=== PATIENT | female | born 1975 | race Caucasian/White ===

== ENCOUNTER 2016-12-18 13:02 | Emergency (ER) | payer OTHER ==
--- NOTE | 2016-12-18 14:43 | DIAGNOSTIC IMAGING REPORT ---
PROCEDURE: XR CHEST 2 VIEW INDICATION: FEVER TECHNIQUE: PA and lateral views. COMPARISON: Chest 10/18/2014 FINDINGS: Lungs are clear. Heart and mediastinum are normal. Thorax is normal. IMPRESSION: 1. Negative chest.
--- NOTE | 2016-12-18 15:20 | ED ORDER SUMMARY ---
..... Patient: AMERICA NGUYỄN OrderSheet [facility] VisitID: [id number] [place] [address] 41y, F Registration Date/Time: 12/18/2016 ORDER SHEET Weight: 122.4 kg (stated) Allergies: tributaline GENERAL ORDERS: Rapid Influenza Screen (Nasal Pharyngeal) (n) Urgent (13:23 12/18/2016 EKoroleva P.A.-C) (Ack 13:28 LTapper) (14:21 JRomanelli R.N.) Chest 2V Urgent (13:26 12/18/2016 EKoroleva P.A.-C) (Ack 13:28 LTapper) (14:18 LTapper) CBC w Diff Urgent (13:26 12/18/2016 EKoroleva P.A.-C) (Ack 13:28 LTapper) (13:49 JRomanelli R.N.) BMP Urgent (13:26 12/18/2016 EKoroleva P.A.-C) (Ack 13:28 LTapper) (13:49 JRomanelli R.N.) PCT (Procalcitonin) Urgent (13:27 12/18/2016 EKoroleva P.A.-C) (Ack 13:28 LTapper) (16:01 JRomanelli R.N.) Lactate, Serum Urgent (13:27 12/18/2016 EKoroleva P.A.-C) (Ack 13:28 LTapper) (Cancelled: Other14:56 EKoroleva P.A.-C) - (tamiflu 75 mg po) (14:59 12/18/2016 EKoroleva P.A.-C) (Ack 15:22 LTapper) (Cancelled: Other16:02 JRomanelli R.N.) Vitals (15:00 12/18/2016 EKoroleva P.A.-C) (Ack 15:01 LTapper) (16:02 JRomanelli R.N.) MEDICATION ORDERS: Tylenol PO 650 mg (NOW) (13:26 12/18/2016 EKoroleva P.A.-C) (Ack 13:27 Geremias R.N.) (13:49 omanelli R.N.) IV FLUIDS: IV NS : initial bolus 1000 mL (1000 mL/hr), then 1000 mL/hr for X1 (NOW); George (13:26 12/18/2016 EKoroleva P.A.-C) (Ack 13:27 Geremias R.N.) (13:47 omanelli R.N.) Toradol IV 30 mg (NOW) (13:12/18/2016 EKoroleva P.A.-C) (Ack 13:27 Geremias R.N.) (13:48 omanelli R.N.) Zofran IV 8 mg (NOW) (13:33 12/18/2016 EKmayalegraham P.A.-C) (13:57 omanelli R.N.) ORDER SHEET NOTES: [Electronically signed by Miriam Pool-Crys (15:21 12/18/2016)] [Electronically signed by Ortiz Herrera R.N. (17:32 12/18/2016)] [Electronically locked/signed by Ortiz Herrera R.N. (17:32 12/18/2016)]
--- NOTE | 2016-12-18 15:20 | ED CLINICAL REPORT ---
Clinical Report - Physicians/Mid Levels [facility] [address] [place] [address] 12/18/2016 13:05 Patient: AMERICA NGUYỄN Time Seen: 13:32 Dec 18 2016. Arrived- By private vehicle. Historian- patient and family. HISTORY OF PRESENT ILLNESS Chief Complaint: COUGH and "FLU". This started 2 days and is still present. The patient has had a cough, fever, chills and muscle aches. No sputum production, sore throat, hoarseness, sinus drainage or ear pain. Additional history - The patient has had contact with a sick individual. (patient reports symptoms started with a fever about 48 hours previously, have progressive dry cough, body aches, fatigue, arthralgias. Condition she started with a migraine-like headache, to the bony lateral frontal aspect of her head, with nausea. She has a history of migraines, usually once a months.). Similar symptoms previously: None. REVIEW OF SYSTEMS No vomiting, diarrhea or pedal edema. All systems otherwise negative, except as recorded above. SOCIAL HISTORY Smoker- current status unknown. No alcohol use or drug use. ADDITIONAL NOTES The nursing notes have been reviewed. PHYSICAL EXAM Vital Signs: 12/18/2016 13:13 BP: 129/69. HR: 100. RR: 18. O2 saturation: 97%. Temp: 103.1 F. Pain level now: 8/10. Appearance: Alert. (diaphoretic). Eyes: Eyes normal inspection. ENT: Ears normal. Nose normal. Pharynx normal. Neck: Normal inspection. CVS: Normal heart rate and rhythm. Heart sounds normal. Respiratory: No respiratory distress. No accessory muscle use or splinting. Abdomen: Soft. No organomegaly. No rebound tenderness. Skin: Skin warm. Abnormal skin color. Neuro: Oriented X 3. No motor deficit. LABS, X-RAYS, AND EKG Chest X-ray: (IMPRESSION: 1. Negative chest. Electronically Final signed by:Juan Parr MD 12/18/2016 2:43:28 PM). Laboratory Tests: CBC w Diff: (LINO: 12/18/2016 13:30) ( MsgRcvd 12/18/2016 13:58) Final results Test Result Flag Units (Reference) WHITE BLOOD COUNT 9.1 K/uL (4.5-11.5) RED BLOOD COUNT 5.15 M/uL (4.00-5.20) HEMOGLOBIN 12.2 gm/dL (12.0-16.0) HEMATOCRIT 36.7 % (36.0-46.0) MEAN CELL VOLUME 71 L fL (80-100) MEAN CORPUSCULAR HGB 24 L pg (26-34) MEAN CORPUSCULAR HGB CONC 33 g/dL (31-37) RED CELL DISTRIBUTION WIDTH 17.5 H % (11.6-14.8) PLATELET COUNT 364 K/uL (150-400) NEUTROPHIL % 78.3 H % (50-75) LYMPH % 8.5 L % (25-40) MONO % 12.7 % (3-14) EOSINOPHIL % 0.4 % (0-4) BASOPHIL % 0.1 % (0-2) [id number]: (LINO: 12/18/2016 13:30) ( MsgRcvd 12/18/2016 14:45) Final results Test Result Flag Units (Reference) PROCALCITONIN <0.5 ng/mL (0-0.5) PCT Concentration: Interpretation : Risk/option for action PCT <=0.5 ng/mL : Systemic : Low risk forinfection(sepsis): progression to severeis not likely. : systemic infection.Local bacterial : CAUTION-PCT levelsinfection is : below 0.5 ng/mL do notpossible. : exclude an infection,because localizedinfections (withoutsystemic signs) may beassociated with suchlow levels. If PCT ismeasured very earlyafter a bacterialchallenge (usually <6hours), these valuesmay still be low. Inthis case PCT shouldbe re-assessed 6-24hours later. PCT >0.5 and : Systemic infection: Moderate risk for<= 2 ng/mL : (sepsis) is : progression to severepossible, but : systemic infection.other conditions : The patient should beare known to : closely monitoredelevate PCT. : both clinically andby re-assessing PCTwithin 6-24 hours. PCT > 2 ng/mL : Systemic infection: High risk for(sepsis) is likely: progression to severeunless other : systemic infection.causes are known. : PCT >= 10 ng/mL : Important systemic: High likelihood ofinflammatory : severe sepsis orresponse, almost : septic shock.exclusively due to:severe bacterial :sepsis or septic :shock. : BMP: (LINO: 12/18/2016 13:30) ( MsgRcvd 12/18/2016 14:27) Final results Test Result Flag Units (Reference) GLUCOSE 100 mg/dL (70-110) BUN 6 L mg/dL (7-18) CREATININE 0.8 mg/dL (0.6-1.3) Estimated GFR >60 mL/min Estimated GFR- >60 mL/min Note: Persistent reduction over 3 months in eGFR<60 mL/min/1.73 m2 defines CKD. Patients with eGFR values>=60 mL/min/1.73 m2 may also have CKD if evidence ofpersistent proteinuria. Additional information may be foundat www.kidney.org. SODIUM 136 mmol/L (136-145) POTASSIUM 3.5 mmol/L (3.5-5.1) CHLORIDE 102 mmol/L (98-107) CARBON DIOXIDE 20 L mmol/L (21-32) CALCIUM 8.6 mg/dL (8.5-10.1) Rapid Influenza Screen: (LINO: 12/18/2016 14:00) ( MsgRcvd 12/18/2016 14:49) Final results SPECIMEN DESCRIPTION: N Test Result Flag Units (Reference) RAPID INFLUENZA SCREEN CALLED TO: OLAMIDE MARROQUINRN -- DATE: 12/18/16 INFLUENZA A: NEGATIVE SCREEN FOR INFLUENZA A INFLUENZA B: POSITIVE SCREEN FOR INFLUENZA B . PROGRESS AND PROCEDURES Course of Care: Patient was symptom subsiding in the ER, headache is for her home along with her migraine, especially after illness. No meningeal signs. No afebrile. Lungs clear. Chest x-ray unremarkable. No signs or concern of any further acute workup. Nonseptic. No signs of leukocytosis, likely viral pathology, as indicated by a positive rapid influenza B. 12/18/2016 15:11 BP: 124/73. HR: 87. RR: 20. O2 saturation: 95%. Temp: 99.2 F. Pain level now: 5/10. Patient is stable. Physical exam findings are improved. Symptoms better. Patient/family counseled. Disposition: Discharged. CLINICAL IMPRESSION Influenza type B. INSTRUCTIONS Do not work for two days. (alternate tylneol with motrin). Prescription Medications: Zofran (orally disintegrating tablets) 4 mg: take 1 orally every 6 hours for 3 days. Dispense ten (10). Substitution is permissible. Tamiflu 75 mg: take 1 capsule orally every 12 hours for 5 days. Dispense ten (10). No refills. Substitution is permissible. Ibuprofen 600 mg tablets: take 1 tablet orally every 6 hours for 3 days, as needed for fever. Dispense fifteen (15). No refill. OTC Medications: Acetaminophen ER 650 mg (available over the counter): take 1 orally every 6 hours for 3 days, as needed for fever. Dispense ten (10). No refill. Follow-up: Follow up with your doctor Thursday as needed. (Electronically signed by Miriam Pool P.A.-C 12/18/2016 15:21)
--- NOTE | 2016-12-18 15:20 | ED ORDER SUMMARY ---
..... Patient: AMERICA NGUYỄN OrderSheet [facility] VisitID: [id number] [place] [address] 41y, F Registration Date/Time: 12/18/2016 ORDER SHEET Weight: 122.4 kg (stated) Allergies: tributaline GENERAL ORDERS: Rapid Influenza Screen (Nasal Pharyngeal) (n) Urgent (13:23 12/18/2016 EKoroleva P.A.-C) (Ack 13:28 LTapper) (14:21 JRomanelli R.N.) Chest 2V Urgent (13:26 12/18/2016 EKoroleva P.A.-C) (Ack 13:28 LTapper) (14:18 LTapper) CBC w Diff Urgent (13:26 12/18/2016 EKoroleva P.A.-C) (Ack 13:28 LTapper) (13:49 JRomanelli R.N.) BMP Urgent (13:26 12/18/2016 EKoroleva P.A.-C) (Ack 13:28 LTapper) (13:49 JRomanelli R.N.) PCT (Procalcitonin) Urgent (13:27 12/18/2016 EKoroleva P.A.-C) (Ack 13:28 LTapper) (16:01 JRomanelli R.N.) Lactate, Serum Urgent (13:27 12/18/2016 EKoroleva P.A.-C) (Ack 13:28 LTapper) (Cancelled: Other14:56 EKoroleva P.A.-C) - (tamiflu 75 mg po) (14:59 12/18/2016 EKoroleva P.A.-C) (Ack 15:22 LTapper) (Cancelled: Other16:02 JRomanelli R.N.) Vitals (15:00 12/18/2016 EKoroleva P.A.-C) (Ack 15:01 LTapper) (16:02 JRomanelli R.N.) MEDICATION ORDERS: Tylenol PO 650 mg (NOW) (13:26 12/18/2016 EKoroleva P.A.-C) (Ack 13:27 Geremias R.N.) (13:49 omanelli R.N.) IV FLUIDS: IV NS : initial bolus 1000 mL (1000 mL/hr), then 1000 mL/hr for X1 (NOW); George (13:26 12/18/2016 EKoroleva P.A.-C) (Ack 13:27 Geremias R.N.) (13:47 omanelli R.N.) Toradol IV 30 mg (NOW) (13:12/18/2016 EKoroleva P.A.-C) (Ack 13:27 Geremias R.N.) (13:48 omanelli R.N.) Zofran IV 8 mg (NOW) (13:33 12/18/2016 EKmayalegraham P.A.-C) (13:57 omanelli R.N.) ORDER SHEET NOTES: [Electronically signed by Miriam Pool-Crys (15:21 12/18/2016)] [Electronically signed by Ortiz Herrera R.N. (17:32 12/18/2016)] [Electronically locked/signed by Ortiz Herrera R.N. (17:32 12/18/2016)]
--- NOTE | 2016-12-18 15:20 | ED NURSING NOTES ---
Clinical Report - Nurses [facility] [address] [place] [address] 12/18/2016 13:05 Patient: AMERICA NGUYỄN TRIAGE Triage time 13:10 Dec 18 2016. Acuity: LEVEL 3. Chief Complaint: "FLU", FEVER, COUGH and BODY ACHES. Alert. VALORIE COMA SCORE: [place] Coma Scale: 15- eyes open spontaneously (4); best verbal response- oriented x 4 (5); best motor response- obeys commands (6). --13:22 Ortiz Herrera R.N. 13:13 12/18/16. BP: 129/69. HR: 100. RR: 18. O2 saturation: 97%. Temp: 103.1 F. Pain level now: 810. Additional comments: AGARWAL pain. --13:22 Ortiz Herrera R.N. Weight: 122.4 kg stated. Height/Length: 69 inches Per Patient. BMI: 39.9. --13:18 Ortiz Herrera R.N. Medications Zomig Oral. --13:20 Ortiz Herrera R.N. Allergies tributaline. --13:20 Ortiz Herrera R.N. History Historian: patient. ( Flu-like symptoms starting two days ago consisting of a fever, AGARWAL, and nausea.). Onset. (about 2 days ago). She has had a headache and photophobia. Treatment [employer]ER: Took Tylenol and ibuprofen. Symptoms did not improve after treatment. (Nyquil). PAST MEDICAL HX: Immunizations: status is unknown. SOCIAL HX: Heavy tobacco smoker (cigarette)- less than 1 pack per day. No alcohol use or drug use. No recent travel. No infectious disease exposure. ABUSE ASSESSMENT: No report of abuse. FALL RISK ASSESSMENT: Fall risk assessment completed. No fall risk identified. NUTRITIONAL RISK ASSESSMENT: The nutritional risk assessment revealed no deficiencies. FUNCTIONAL ASSESSMENT: Functional assessment: no impairments noted. LEARNING NEEDS ASSESSMENT: The learning needs assessment revealed no barriers. SKIN INTEGRITY ASSESSMENT: Skin integrity risk assessment completed. No skin integrity risk identified. --13:22 Ortiz Herrera R.N. PROBLEMS: Migraine Headache. Hypertension. Concussion. Cholecystitis. Appendicitis. Gastroesophageal Reflux Disease. Dysfunctional Uterine Bleeding. --13:21 Ortiz Herrera R.N. UTI - Urinary Tract Infection [RuleOut]. --13:21 Ortiz Herrera R.N. ADDITIONAL SURGERIES: . Gallbladder Surgery. --13:21 Ortiz Herrera R.N. Interventions ID and allergy band on patient. To treatment room. --13:22 Ortiz Herrera R.N. PHYSICAL ASSESSMENT Ambulatory to room. GENERAL / NEURO / PSYCH: Alert. Oriented X 4. HEENT: Mucous membranes are pink. RESPIRATORY: Respirations not labored. CVS: Cardiac rhythm: (RRR). GI / : Abdomen soft. SKIN: Skin intact. Skin is warm and dry. Normal skin turgor. --13:22 Ortiz Herrera R.N. NURSING PROGRESS NOTES Patient gowned. Reassurance given. Patient identifiers checked. Call light placed in reach. Side rails up x 1. Bed placed in lowest position. Brakes of bed on. Patient ready for evaluation- chart flagged and ED physician notified. --13:23 Ortiz Herrera R.N. 13:30 12/18/2016 Site #1 started via IV in the right forearm with an 20g angiocath, with aseptic technique and good blood return; one attempt. Blood drawn: rainbow set. Labeled in the presence of the patient and sent to the lab. Saline lock flushed with 10 mL saline. --13:47 Ortiz Herrera R.N. 13:32 12/18/2016 Started bag #1 1000 mL IV Fluids IV NS (Saline); at 999 mL/hr over 60 minute(s) via site #1 via IV pump. Allergies verified and confirmed 5 rights. IV patency established. IV site checked: no pain, redness, or swelling. IV flushed thoroughly pre- and post-medication administration. --13:47 Ortiz Herrera R.N. 13:35 12/18/2016 Toradol IVP 30 mg given over 2 minute(s) via site #1. Allergies verified and confirmed 5 rights. IV patency established. IV site checked: no pain, redness, or swelling. IV flushed thoroughly pre- and post-medication administration. IVP given by RN. --13:48 Ortiz Herrera R.N. 15:11 12/18/16. BP: 124/73 (large adult cuff) taken on the left arm, via an automated monitor, while sitting. HR: 87 (irregular). RR: 20 (irregular). O2 saturation: 95% on room air. Temp: 99.2 F. Pain level now: 02/11. --15:13 Valerie Martin <<STRICKEN ENTRY-- 13:35 12/18/2016 IV Fluids IV NS Bag Change: infused. Total amount infused: 1000. STARTED bag #2 (1000 mL) at 999 mL/hr via IV pump. Confirmed 5 rights. IV patency established. IV site checked: no pain, redness, or swelling. IV flushed thoroughly. --16:00 Ortiz Herrera R.N. --END STRIKE>> Correction. --16:01 Ortiz Herrera R.N. 13:40 12/18/2016 Tylenol (Acetaminophen) PO Tablets 650 mg given. Allergies verified and confirmed 5 rights. --13:49 Ortiz Herrera R.N. 13:52 12/18/2016 Zofran (Ondansetron HCl) IVP 8 mg given over 3 minute(s) via site #1. Allergies verified and confirmed 5 rights. IV patency established. IV site checked: no pain, redness, or swelling. IV flushed thoroughly pre- and post-medication administration. IVP given by RN. --13:57 Ortiz Herrera R.N. <<STRICKEN ENTRY-- 14:35 12/18/2016 IV Fluids IV NS Bag Change: infused. Total amount infused: 1000. STARTED bag #2 (1000 mL) at 999 mL/hr via IV pump. Confirmed 5 rights. IV patency established. IV site checked: no pain, redness, or swelling. IV flushed thoroughly. --16:01 Ortiz Herrera R.N. --END STRIKE>> Correction. --16:05 Ortiz Herrera R.N. 14:35 12/18/2016 IV Fluids IV NS Bag Change: bag #1 infused. Total amount infused: 1000. STARTED bag #2 (1000 mL) at 999 mL/hr via IV pump. Confirmed 5 rights. IV patency established. IV site checked: no pain, redness, or swelling. IV flushed thoroughly. --16:05 Ortiz Herrera R.N. 15:35 12/18/2016 IV Fluids IV NS Discontinued: bag #2 infused upon discharge. Total amount infused: 1000 mL. IV patency established. IV site checked: no pain, redness, or swelling. IV flushed thoroughly. --16:06 Ortiz Herrera R.N. 15:40 12/18/2016 Site #1 removed upon discharge. Catheter intact. Manual pressure, pressure dressing and bandaid applied. --16:08 Ortiz Herrera R.N. 14:00. Patient transported to radiology by stretcher with tech. --17:30 Ortiz Herrera R.N. 14:20. Patient ID band checked for patient name, birthdate and medical record number: patient confirmed. Flu swab obtained by RN via nasal pharyngeal swab. Labeled in the presence of the patient and sent to lab. --16:11 Ortiz Herrera R.N. 14:20 late entry -. Patient returned from radiology by stretcher with tech. --17:31 Ortiz Herrera R.N. DISPOSITION / DISCHARGE Departure time: 1545. --15:50 Ortiz Herrera R.N. 15:40 12/18/16. BP: 125/69. HR: 82. RR: 16. O2 saturation: 97% on room air. Temp: 98.6 F (oral). Pain level now: 10/14. Additional comments: AGARWAL pain. --15:52 Ortiz Herrera R.N. 15:45. Condition at departure: improved. No learning barriers present. Discharge instructions provided and reviewed with the patient and the patient left prior to discharge education being provided. Reviewed medication(s) (prescription given to pt's spouse). Reviewed referral to family practice for followup. Patient and spouse verbalized understanding. Written instructions provided in [place]. The patient was discharged by the physician. She was discharged home and accompanied by spouse. She left the Emergency Department ambulatory and via private vehicle. Spouse driving. --15:56 Ortiz Herrera R.N. Locked/Released at 12/18/2016 17:32 by Ortiz Herrera R.N.
--- NOTE | 2016-12-18 17:32 | ED MED RECONCILIATION SUMMARY ---
Patient: AMERICA NGUYỄN Medication Reconciliation Report [facility] VisitID: [id number] [place] [address] 41y, F Registration Date/Time: 12/18/2016 Weight: 122.4 kg Height/Length: 69 in. BMI: 39.9 ALLERGIES: tributaline The patient's Home Medications are listed below: THE FOLLOWING MEDICATIONS NEED TO BE RECONCILED: Zomig Oral The source(s) of the original Home Medication information: Not obtained. The following Medications were given to the patient in the Emergency Department: IV NS IV Fluids bolus 0, then 999 mL/hr, administered: 12/18/2016 1:32:00 PM Toradol [IVP] IVP 30 mg, administered: 12/18/2016 1:35:00 PM Tylenol [PO] PO 650 mg, administered: 12/18/2016 1:40:00 PM Zofran [IVP] IVP 8 mg, administered: 12/18/2016 1:52:00 PM The following Medications were prescribed to the patient: Acetaminophen ER 650 mg (available over the counter): take 1 orally every 6 hours for 3 days, as needed for fever. Dispense ten (10). No refill. -- Miriam Pool, P.A.-C Zofran (orally disintegrating tablets) 4 mg: take 1 orally every 6 hours for 3 days. Dispense ten (10). Substitution is permissible. -- Miriam Pool, P.A.-C Tamiflu 75 mg: take 1 capsule orally every 12 hours for 5 days. Dispense ten (10). No refills. Substitution is permissible. -- Miriam Pool, P.A.-C Ibuprofen 600 mg tablets: take 1 tablet orally every 6 hours for 3 days, as needed for fever. Dispense fifteen (15). No refill. -- Miriam Pool, P.A.-C
--- NOTE | 2016-12-18 17:32 | ED DISCHARGE INSTRUCTIONS ---
Patient: AMERICA NGUYỄN General Instructions [facility] VisitID: [id number] [place] [address] 41y, F Registration Date/Time: 12/18/2016 Influenza type B. INSTRUCTIONS Do not work for two days. (alternate tylneol with motrin). Prescription Medications: Zofran (orally disintegrating tablets) 4 mg: take 1 orally every 6 hours for 3 days. Dispense ten (10). Substitution is permissible. Tamiflu 75 mg: take 1 capsule orally every 12 hours for 5 days. Dispense ten (10). No refills. Substitution is permissible. Ibuprofen 600 mg tablets: take 1 tablet orally every 6 hours for 3 days, as needed for fever. Dispense fifteen (15). No refill. OTC Medications: Acetaminophen ER 650 mg (available over the counter): take 1 orally every 6 hours for 3 days, as needed for fever. Dispense ten (10). No refill. Follow-up: Follow up with your doctor Thursday as needed. ADDITIONAL INFORMATION Influenza (Adult) Influenza, also called the flu, is a viral illness that affects the air passages of the lungs. It differs from the common cold. It is highly contagious. It may be spread through the air by coughing and sneezing or by direct contact (touching the sick person and then touching your own eyes, nose or mouth). Illness starts 1-3 days after exposure and lasts for 1-2 weeks. Antibiotics are usually not needed unless a complication appears (ear or sinus infection or pneumonia). Symptoms may be mild or severe and can include extreme tiredness (wanting to stay in bed all day), chills, fevers, muscle aching, soreness with eye movement, headache, and a dry, hacking cough. Home Care: Avoid exposure to cigarette smoke (yours or others). Tylenol or ibuprofen (Advil) will help fever, muscle aching, and headache. To avoid risk of liver injury, aspirin should not be used in children and teenagers under 18 with this illness. Nausea and loss of appetite are common. A light diet is recommended. Avoid dehydration by drinking 6-8 glasses of fluids per day (water, sport drinks like Gatorade, soft drinks without caffeine, juices, tea, soup, etc.). Extra fluids will also help loosen secretions in the nose and lungs. Jpsx-[id number]-[id number] cold medicines will not shorten the duration of the illness but may be helpful for the following symptoms: cough (Robitussin DM); sore throat (Chloraseptic lozenges or spray); nasal and sinus congestion (Actifed or Sudafed). [NOTE: Do not use decongestants if you have high blood pressure.] Stay home until your fever has been gone for at least 24 hours (without the use of fever-reducing medications such as ibuprofen). Follow Up with your doctor or as directed by our staff if you are not improving over the next week. Note: If you are age 65 or older, or if you have chronic asthma or COPD, we recommend a pneumococcal vaccinationevery five years. All adults shouldreceive a yearly influenza vaccination every . Ask your doctor about this. Get Prompt Medical Attention if any of the following occur: Cough with lots of colored sputum (mucus) or blood in your sputum Chest pain, shortness of breath, wheezing, or difficulty breathing Severe headache, face, neck or ear pain New rash Fever of 100.4F (38C) oral or higher, not better with fever medication Confusion, behavior change or seizure Severe weakness or dizziness Ondansetron Hydrochloride Oral tablet What is this medicine? ONDANSETRON (on ALVARO se jamey) is used to treat nausea and vomiting caused by chemotherapy. It is also used to prevent or treat nausea and vomiting after surgery. How should I use this medicine? Take this medicine by mouth with a glass of water. Follow the directions on your prescription label. Take your doses at regular intervals. Do not take your medicine more often than directed. Talk to your medical office specialist regarding the use of this medicine in children. Special care may be needed. What side effects may I notice from receiving this medicine? Side effects that you should report to your doctor or health healthcare receptionist as soon as possible: allergic reactions like skin rash, itching or hives, swelling of the face, lips or tongue breathing problems dizziness fast or irregular heartbeat feeling faint or lightheaded, falls fever and chills swelling of the hands or feet tightness in the chest Side effects that usually do not require medical attention (report to your doctor or health healthcare receptionist if they continue or are bothersome): constipation or diarrhea headache What may interact with this medicine? Do not take this medicine with any of the following medications: -apomorphine -cisapride -dofetilide -dronedarone -pimozide -thioridazine -ziprasidone This medicine may also interact with the following medications: -carbamazepine -phenytoin -rifampicin -tramadol -other medicines that prolong the QT interval (cause an abnormal heart rhythm) What if I miss a dose? If you miss a dose, take it as soon as you can. If it is almost time for your next dose, take only that dose. Do not take double or extra doses. Where should I keep my medicine? Keep out of the reach of children. Store between 2 and 30 degrees C (36 and 86 degrees F). Throw away any unused medicine after the expiration date. What should I tell my health care provider before I take this medicine? They need to know if you have any of these conditions: heart disease history of irregular heartbeat liver disease low levels of magnesium or potassium in the blood an unusual or allergic reaction to ondansetron, granisetron, other medicines, foods, dyes, or preservatives or trying to get breast-feeding What should I watch for while using this medicine? Check with your doctor or health healthcare receptionist right away if you have any sign of an allergic reaction. Acetaminophen Oral tablet What is this medicine? ACETAMINOPHEN (a set a FARNAZ kristi fen) is a pain reliever. It is used to treat mild pain and fever. How should I use this medicine? Take this medicine by mouth with a glass of water. Follow the directions on the package or prescription label. Take your medicine at regular intervals. Do not take your medicine more often than directed. Talk to your medical office specialist regarding the use of this medicine in children. While this drug may be prescribed for children as young as 6 years of age for selected conditions, precautions do apply. What side effects may I notice from receiving this medicine? Side effects that you should report to your doctor or health healthcare receptionist as soon as possible: allergic reactions like skin rash, itching or hives, swelling of the face, lips, or tongue breathing problems fever or sore throat redness, blistering, peeling or loosening of the skin, including inside the mouth trouble passing urine or change in the amount of urine unusual bleeding or bruising unusually weak or tired yellowing of the eyes or skin Side effects that usually do not require medical attention (report to your doctor or health healthcare receptionist if they continue or are bothersome): headache nausea, stomach upset What may interact with this medicine? alcohol imatinib isoniazid other medicines with acetaminophen What if I miss a dose? If you miss a dose, take it as soon as you can. If it is almost time for your next dose, take only that dose. Do not take double or extra doses. Where should I keep my medicine? Keep out of reach of children. Store at room temperature between 20 and 25 degrees C (68 and 77 degrees F). Protect from moisture and heat. Throw away any unused medicine after the expiration date. What should I tell my health care provider before I take this medicine? They need to know if you have any of these conditions: if you frequently drink alcohol containing drinks liver disease an unusual or allergic reaction to acetaminophen, other medicines, foods, dyes or preservatives or trying to get breast-feeding What should I watch for while using this medicine? Tell your doctor or health healthcare receptionist if the pain lasts more than 10 days (5 days for children), if it gets worse, or if there is a new or different kind of pain. Also, check with your doctor if a fever lasts for more than 3 days. Do not take other medicines that contain acetaminophen with this medicine. Always read labels carefully. If you have questions, ask your doctor or pharmacist. If you take too much acetaminophen get medical help right away. Too much acetaminophen can be very dangerous and cause liver damage. Even if you do not have symptoms, it is important to get help right away. You have been given the following additional information: Influenza (Adult) Ondansetron Hydrochloride Oral tablet Acetaminophen Oral tablet Do not work for two days. (Electronically signed by Miriam Pool P.A.-C 12/18/2016 15:21)
--- NOTE | 2016-12-18 17:32 | ED MAR SUMMARY ---
..... Medication Administration Record [facility] [address] [place] [address] Patient: AMERICA NGUYỄN Visit ID: [id number] 41y, F Weight: 122.4 kg Height/Length: 69 in BMI: 39.9 ALLERGIES: tributaline Start 13:32 12/18/2016 Ortiz Herrera R.N., Stop 15:35 12/18/2016 Ortiz Herrera R.N. Medication Administered: IV NS (SALINE), Dose: IV Fluids over 60 minute(s), Rate: 999 mL/hr, Dispensed: 1000 mL bag, Site: #1 right forearm. Medication Ordered: IV NS : initial bolus 1000 mL (1000 mL/hr), then 1000 mL/hr for X1 (NOW); George. Given 13:35 12/18/2016 Ortiz Herrera R.N. Medication Administered: TORADOL [IVP], Dose: 30 mg IVP over 2 minute(s), Site: #1 right forearm. Medication Ordered: Toradol IV 30 mg (NOW). Given 13:40 12/18/2016 Ortiz Herrera R.N. Medication Administered: TYLENOL [PO] (ACETAMINOPHEN), Dose: 650 mg Tablets PO. Medication Ordered: Tylenol PO 650 mg (NOW). Given 13:52 12/18/2016 Ortiz Herrera R.N. Medication Administered: ZOFRAN [IVP] (ONDANSETRON HCL), Dose: 8 mg IVP over 3 minute(s), Site: #1 right forearm. Medication Ordered: Zofran IV 8 mg (NOW).
--- NOTE | 2016-12-18 17:32 | ED DISCHARGE INSTRUCTIONS ---
Patient: AMERICA NGUYỄN General Instructions [facility] VisitID: [id number] [place] [address] 41y, F Registration Date/Time: 12/18/2016 Influenza type B. INSTRUCTIONS Do not work for two days. (alternate tylneol with motrin). Prescription Medications: Zofran (orally disintegrating tablets) 4 mg: take 1 orally every 6 hours for 3 days. Dispense ten (10). Substitution is permissible. Tamiflu 75 mg: take 1 capsule orally every 12 hours for 5 days. Dispense ten (10). No refills. Substitution is permissible. Ibuprofen 600 mg tablets: take 1 tablet orally every 6 hours for 3 days, as needed for fever. Dispense fifteen (15). No refill. OTC Medications: Acetaminophen ER 650 mg (available over the counter): take 1 orally every 6 hours for 3 days, as needed for fever. Dispense ten (10). No refill. Follow-up: Follow up with your doctor Thursday as needed. ADDITIONAL INFORMATION Influenza (Adult) Influenza, also called the flu, is a viral illness that affects the air passages of the lungs. It differs from the common cold. It is highly contagious. It may be spread through the air by coughing and sneezing or by direct contact (touching the sick person and then touching your own eyes, nose or mouth). Illness starts 1-3 days after exposure and lasts for 1-2 weeks. Antibiotics are usually not needed unless a complication appears (ear or sinus infection or pneumonia). Symptoms may be mild or severe and can include extreme tiredness (wanting to stay in bed all day), chills, fevers, muscle aching, soreness with eye movement, headache, and a dry, hacking cough. Home Care: Avoid exposure to cigarette smoke (yours or others). Tylenol or ibuprofen (Advil) will help fever, muscle aching, and headache. To avoid risk of liver injury, aspirin should not be used in children and teenagers under 18 with this illness. Nausea and loss of appetite are common. A light diet is recommended. Avoid dehydration by drinking 6-8 glasses of fluids per day (water, sport drinks like Gatorade, soft drinks without caffeine, juices, tea, soup, etc.). Extra fluids will also help loosen secretions in the nose and lungs. Qdho-vra-ewuuwju cold medicines will not shorten the duration of the illness but may be helpful for the following symptoms: cough (Robitussin DM); sore throat (Chloraseptic lozenges or spray); nasal and sinus congestion (Actifed or Sudafed). [NOTE: Do not use decongestants if you have high blood pressure.] Stay home until your fever has been gone for at least 24 hours (without the use of fever-reducing medications such as ibuprofen). Follow Up with your doctor or as directed by our staff if you are not improving over the next week. Note: If you are age 65 or older, or if you have chronic asthma or COPD, we recommend a pneumococcal vaccinationevery five years. All adults shouldreceive a yearly influenza vaccination every . Ask your doctor about this. Get Prompt Medical Attention if any of the following occur: Cough with lots of colored sputum (mucus) or blood in your sputum Chest pain, shortness of breath, wheezing, or difficulty breathing Severe headache, face, neck or ear pain New rash Fever of 100.4F (38C) oral or higher, not better with fever medication Confusion, behavior change or seizure Severe weakness or dizziness Ondansetron Hydrochloride Oral tablet What is this medicine? ONDANSETRON (on ALVARO se jamey) is used to treat nausea and vomiting caused by chemotherapy. It is also used to prevent or treat nausea and vomiting after surgery. How should I use this medicine? Take this medicine by mouth with a glass of water. Follow the directions on your prescription label. Take your doses at regular intervals. Do not take your medicine more often than directed. Talk to your slot supervisor regarding the use of this medicine in children. Special care may be needed. What side effects may I notice from receiving this medicine? Side effects that you should report to your doctor or health acute care surgeon as soon as possible: allergic reactions like skin rash, itching or hives, swelling of the face, lips or tongue breathing problems dizziness fast or irregular heartbeat feeling faint or lightheaded, falls fever and chills swelling of the hands or feet tightness in the chest Side effects that usually do not require medical attention (report to your doctor or health acute care surgeon if they continue or are bothersome): constipation or diarrhea headache What may interact with this medicine? Do not take this medicine with any of the following medications: -apomorphine -cisapride -dofetilide -dronedarone -pimozide -thioridazine -ziprasidone This medicine may also interact with the following medications: -carbamazepine -phenytoin -rifampicin -tramadol -other medicines that prolong the QT interval (cause an abnormal heart rhythm) What if I miss a dose? If you miss a dose, take it as soon as you can. If it is almost time for your next dose, take only that dose. Do not take double or extra doses. Where should I keep my medicine? Keep out of the reach of children. Store between 2 and 30 degrees C (36 and 86 degrees F). Throw away any unused medicine after the expiration date. What should I tell my health care provider before I take this medicine? They need to know if you have any of these conditions: heart disease history of irregular heartbeat liver disease low levels of magnesium or potassium in the blood an unusual or allergic reaction to ondansetron, granisetron, other medicines, foods, dyes, or preservatives or trying to get breast-feeding What should I watch for while using this medicine? Check with your doctor or health acute care surgeon right away if you have any sign of an allergic reaction. Acetaminophen Oral tablet What is this medicine? ACETAMINOPHEN (a set a FARNAZ kristi fen) is a pain reliever. It is used to treat mild pain and fever. How should I use this medicine? Take this medicine by mouth with a glass of water. Follow the directions on the package or prescription label. Take your medicine at regular intervals. Do not take your medicine more often than directed. Talk to your slot supervisor regarding the use of this medicine in children. While this drug may be prescribed for children as young as 6 years of age for selected conditions, precautions do apply. What side effects may I notice from receiving this medicine? Side effects that you should report to your doctor or health acute care surgeon as soon as possible: allergic reactions like skin rash, itching or hives, swelling of the face, lips, or tongue breathing problems fever or sore throat redness, blistering, peeling or loosening of the skin, including inside the mouth trouble passing urine or change in the amount of urine unusual bleeding or bruising unusually weak or tired yellowing of the eyes or skin Side effects that usually do not require medical attention (report to your doctor or health acute care surgeon if they continue or are bothersome): headache nausea, stomach upset What may interact with this medicine? alcohol imatinib isoniazid other medicines with acetaminophen What if I miss a dose? If you miss a dose, take it as soon as you can. If it is almost time for your next dose, take only that dose. Do not take double or extra doses. Where should I keep my medicine? Keep out of reach of children. Store at room temperature between 20 and 25 degrees C (68 and 77 degrees F). Protect from moisture and heat. Throw away any unused medicine after the expiration date. What should I tell my health care provider before I take this medicine? They need to know if you have any of these conditions: if you frequently drink alcohol containing drinks liver disease an unusual or allergic reaction to acetaminophen, other medicines, foods, dyes or preservatives or trying to get breast-feeding What should I watch for while using this medicine? Tell your doctor or health acute care surgeon if the pain lasts more than 10 days (5 days for children), if it gets worse, or if there is a new or different kind of pain. Also, check with your doctor if a fever lasts for more than 3 days. Do not take other medicines that contain acetaminophen with this medicine. Always read labels carefully. If you have questions, ask your doctor or pharmacist. If you take too much acetaminophen get medical help right away. Too much acetaminophen can be very dangerous and cause liver damage. Even if you do not have symptoms, it is important to get help right away. You have been given the following additional information: Influenza (Adult) Ondansetron Hydrochloride Oral tablet Acetaminophen Oral tablet Do not work for two days. (Electronically signed by Miriam Pool P.A.-C 12/18/2016 15:21)
--- NOTE | 2016-12-18 17:32 | ED MED RECONCILIATION SUMMARY ---
Patient: AMERICA NGUYỄN Medication Reconciliation Report [facility] VisitID: [id number] [place] [address] 41y, F Registration Date/Time: 12/18/2016 Weight: 122.4 kg Height/Length: 69 in. BMI: 39.9 ALLERGIES: tributaline The patient's Home Medications are listed below: THE FOLLOWING MEDICATIONS NEED TO BE RECONCILED: Zomig Oral The source(s) of the original Home Medication information: Not obtained. The following Medications were given to the patient in the Emergency Department: IV NS IV Fluids bolus 0, then 999 mL/hr, administered: 12/18/2016 1:32:00 PM Toradol [IVP] IVP 30 mg, administered: 12/18/2016 1:35:00 PM Tylenol [PO] PO 650 mg, administered: 12/18/2016 1:40:00 PM Zofran [IVP] IVP 8 mg, administered: 12/18/2016 1:52:00 PM The following Medications were prescribed to the patient: Acetaminophen ER 650 mg (available over the counter): take 1 orally every 6 hours for 3 days, as needed for fever. Dispense ten (10). No refill. -- Miriam Pool, P.A.-C Zofran (orally disintegrating tablets) 4 mg: take 1 orally every 6 hours for 3 days. Dispense ten (10). Substitution is permissible. -- Miriam Pool, P.A.-C Tamiflu 75 mg: take 1 capsule orally every 12 hours for 5 days. Dispense ten (10). No refills. Substitution is permissible. -- Miriam Pool, P.A.-C Ibuprofen 600 mg tablets: take 1 tablet orally every 6 hours for 3 days, as needed for fever. Dispense fifteen (15). No refill. -- Miriam Pool, P.A.-C
--- NOTE | 2016-12-18 17:32 | ED MAR SUMMARY ---
..... Medication Administration Record [facility] [address] [place] [address] Patient: AMERICA NGUYỄN Visit ID: [id number] 41y, F Weight: 122.4 kg Height/Length: 69 in BMI: 39.9 ALLERGIES: tributaline Start 13:32 12/18/2016 Ortiz Herrera R.N., Stop 15:35 12/18/2016 Ortiz Herrera R.N. Medication Administered: IV NS (SALINE), Dose: IV Fluids over 60 minute(s), Rate: 999 mL/hr, Dispensed: 1000 mL bag, Site: #1 right forearm. Medication Ordered: IV NS : initial bolus 1000 mL (1000 mL/hr), then 1000 mL/hr for X1 (NOW); George. Given 13:35 12/18/2016 Ortiz Herrera R.N. Medication Administered: TORADOL [IVP], Dose: 30 mg IVP over 2 minute(s), Site: #1 right forearm. Medication Ordered: Toradol IV 30 mg (NOW). Given 13:40 12/18/2016 Ortiz Herrera R.N. Medication Administered: TYLENOL [PO] (ACETAMINOPHEN), Dose: 650 mg Tablets PO. Medication Ordered: Tylenol PO 650 mg (NOW). Given 13:52 12/18/2016 Ortiz Herrera R.N. Medication Administered: ZOFRAN [IVP] (ONDANSETRON HCL), Dose: 8 mg IVP over 3 minute(s), Site: #1 right forearm. Medication Ordered: Zofran IV 8 mg (NOW).
== END 2016-12-18 15:15 | disposition home or self-care (01) ==
LOC: ED SRH 13:02
DX: J10.1 Influenza due to other identified influenza virus with other respiratory manifestations (principal); K21.9 Gastro-esophageal reflux disease without esophagitis; I10 Essential (primary) hypertension; Z88.8 Allergy status to other drugs, medicaments and biological substances; Z79.899 Other long term (current) drug therapy
CPT/HCPCS: 90047; 91400; 93004; 95059